=== PATIENT | male | born 1930 | race Caucasian/White ===

== ENCOUNTER 2017-08-02 10:56 | Emergency (ER) | payer MEDICARE, OTHER ==
[2017-08-02] MEDS: PROCHLORPERAZINE 10 MG INJ IV (11:46)
[2017-08-02] MEDS: DIPHENHYDRAMINE 50 MG INJ IV (11:46)
[2017-08-02] MEDS: HYDROmorphONE 1 MG/ML SYG IV (11:50)
== END 2017-08-02 14:05 | disposition home or self-care (01) ==
LOC: E/R 10:56
DX: R51 Headache (principal); E03.9 Hypothyroidism, unspecified
CPT/HCPCS: 70450; 96374; 96375; 99285-25